=== PATIENT | male | born 1955 | race Caucasian/White ===

== ENCOUNTER 2017-05-25 13:29 | Observation (INO) | payer BC ==
[2017-05-22 11:57] VITALS: BMI 35.2
--- NOTE | 2017-05-25 12:23 | P.GSHP ---
History of Present Illness H&P Date: 05/25/17 Chief Complaint: Right angle hernia Patient seen in the office in mid April. The patient describes pain and swelling in the right groin over the last 4-5 months. Denies nausea vomiting. No change in bowel habits. Patient has a history of prior umbilical hernia that was repaired during a laparoscopic cholecystectomy. Past Medical History Past Medical History: Hypertension History of Any Multi-Drug Resistant Organisms: None Reported Past Surgical History: Cholecystectomy, Orthopedic Surgery Additional Past Surgical History / Comment(s): rt leg has screws Past Anesthesia/Blood Transfusion Reactions: No Reported Reaction Smoking Status: Never smoker - Past Family History Father Family Medical History: Cancer Additional Family Medical History / Comment(s): bone Medications and Allergies Home Medications Medication Instructions Recorded Confirmed Type Aspirin [Adult Low Dose Aspirin EC] 81 mg PO DAILY 05/22/17 05/22/17 History Lisinopril-Hctz 10-12.5 mg 1 tab PO DAILY 05/22/17 05/22/17 History [Zestoretic 10-12.5] Meloxicam [Mobic] 15 mg PO DAILY 05/22/17 05/22/17 History amLODIPine [Norvasc] 10 mg PO QAM 05/22/17 05/22/17 History Allergies Allergy/AdvReac Type Severity Reaction Status Date / Time No Known Allergies Allergy Verified 05/22/17 11:49 Surgical - Exam Physical exam: General: Well-developed, well-nourished HEENT: Normocephalic, sclerae nonicteric Abdomen: Nontender, nondistended, moderate size reducible right inguinal hernia , questionable small reducible left or hernia both testes normal Extremities: No edema Neuro: Alert and oriented Assessment and Plan (1) Right inguinal hernia Narrative/Plan: Will proceed with operative repair. Endoscopically with the da Willian assistance today. Risks of bleeding, infection, seroma, recurrence, chronic pain, lateral or bowel injury, mesh related comp occasions were discussed. Risk of conversion was also discussed. He understands and wishes to proceed. Status: Acute
[~2017-05-25 13:29] MED LIST: DEXAMETHASONE SOD PHOSPHATE 10 MG/ML 1 ML VIAL IV ONE; HEPARIN SODIUM,PORCINE 5,000 UNIT/ML 1 ML VIAL SQ ONE; LIDOCAINE 1% 20 ML VIAL (10MG/ML) FOR IV START INTRADERMA PRN; ONDANSETRON 4 MG/2 ML VIAL IVP ONE; SCOPOLAMINE 1.5MG/72HR PATCH TRANSDERM ONE; ceFAZolin 2 GM in SODIUM CHLORIDE 0.9% 100 ML IVPB ONE
[2017-05-25 13:47] VITALS: RESP 16
[2017-05-25] MEDS: LACTATED RINGERS 1,000 ML IV SCH ×2 (13:55→14:02)
[2017-05-25] MEDS ORDERED: MIDAZOLAM 2 MG/2 ML VIAL ONE (16:03)
[2017-05-25] MEDS ORDERED: PROPOFOL 10 MG/ML 20 ML VIAL IV ONE (16:03)
[2017-05-25] MEDS ORDERED: fentaNYL (PF) 50 MCG/ML 2 ML AMP ONE (16:03)
[2017-05-25] MEDS ORDERED: LIDOCAINE 1% INJ 10MG/ML (20 ML MDV) ONE (16:03)
[2017-05-25] MEDS ORDERED: SUCCINYLCHOLINE CHLORIDE 100 MG/5 ML SYR IV ONE (16:03)
[2017-05-25] MEDS ORDERED: ROCURONIUM BROMIDE 10 MG/ML 10 ML VIAL IV ONE (16:03)
[2017-05-25] MEDS ORDERED: GLYCOPYRROLATE 0.2 MG/ML 2 ML VIAL ONE (16:03)
[2017-05-25] MEDS ORDERED: NEOSTIGMINE 1 MG/ML 10 ML VIAL ONE (16:03)
[2017-05-25] MEDS ORDERED: BUPIVACAIN-EPI 0.25%-1:200,000 30 ML VIAL SQ ONE ×2 (16:29)
[2017-05-25] MEDS ORDERED: LACTATED RINGERS 1,000 ML IV ONE ×2 (17:23)
[2017-05-25] MEDS ORDERED: TAMSULOSIN 0.4 MG CAP.ER.24H PO STA (20:29)
[2017-05-25] MEDS: HYDROmorphone 1 MG/ML 1 ML SYRINGE IVP PRN ×2 (20:55→21:04)
[2017-05-25] MEDS ORDERED: NALOXONE 0.4 MG/ML 1 ML VIAL IV PRN (21:19)
[2017-05-25] MEDS ORDERED: ONDANSETRON 4 MG/2 ML VIAL IVP PRN (21:19)
[2017-05-25] MEDS ORDERED: HYDROcodone/APAP 5-325MG 1 EACH TAB PO PRN (21:19)
--- NOTE | 2017-05-25 21:25 | P.PCN ---
Date of Procedure: 05/25/17 Preoperative Diagnosis: Postoperative Diagnosis: Procedure(s) Performed: PREOPERATIVE DIAGNOSIS: Right inguinal hernia POSTOPERATIVE DIAGNOSIS: Bilateral inguinal hernia PROCEDURE: Laparoscopic repair lateral inguinal hernia with the da Willian robot assistance SURGEON: Tracee EBL: Minimal ANESTHESIA: General COMPLICATIONS: None OPERATIVE PROCEDURE: Patient was placed in the operating table in the supine position. The patient was then placed in lithotomy. The abdomen was prepped and draped in usual sterile fashion. A small curvilinear supraumbilical incision was made. The fascia was retracted anteriorly with [place] forceps. The Veress needle was inserted. The saline drop test was normal. Insufflation took place to 15 mmHg. A 5 mm trocar was then inserted. 2 additional 8 mm trochars were placed in the right upper quadrant and left upper quadrant under visualization. The initial 5 was switched to a 12 mm trocar at that time under direct visualization. The robotic arms were then brought in and docked into place. The fenestrated bipolar was used in the left arm and the laparoscopic alex was utilized in the right arm. A 30 12 mm scope was used in the up position. The peritoneal cavity was inspected. The patient was noted to have bilateral hernias with a very large indirect on the right and a small indirect on the left. An additional 5 mm trocar was placed in the right upper quadrant to assist with retraction of the large hernia sac on the right-hand side. The patient's cecum was visualized within the hernia and a portion of the hernia sac was composed of the peritoneum around the cecum. Following that careful dissection of the preperitoneal space took place bilaterally. This took place using both electrocautery and sharp dissection and primarily blunt dissection. Visualization of the pubic tubercle and Cesar's ligament took place medially. Full dissection took place laterally as well. The hernia sac was fully dissected. No direct hernia was identified bilaterally. Once we had adequate space the 15 x 10 progrip mesh was advanced into the preperitoneal space and flattened out appropriately to cover all potential hernia sites bilaterally. No sutures were used. The peritoneal defect was then closed using a locking 2- 0 VLok suture. An additional small 3-0 Vicryl stitch was used on the left peritoneum to assist with closure of 2 small defects in the peritoneum. On the right-hand side where the large hernia sac was identified there were also small defects but these were closed using the 12 inch 2-0 vlock stitch. The pneumoperitoneum was then evacuated. The fascia at the 12 mm site was closed using the Neri Santillan technique and a 0 Vicryl stitch. The skin of all 3 sites was closed using a 4-0 Monocryl stitch. Steri-Strips and sterile dressings were applied. DISPOSITION: Stable to recovery room Implants: Indications for Procedure: Operative Findings: Description of Procedure:
[2017-05-25] MEDS: D5-0.45% NACL WITH KCL 20MEQ/L 1,000 ML IV SCH (22:07)
[2017-05-25] MEDS: HEPARIN SODIUM,PORCINE 5,000 UNIT/ML 1 ML VIAL SQ SCH (23:17)
[2017-05-26 01:55] VITALS: PULSE 60
[2017-05-26] MEDS: D5-0.45% NACL WITH KCL 20MEQ/L 1,000 ML IV SCH (05:25)
[2017-05-26 08:28] VITALS: BP 124/62; TEMP 97.1
[2017-05-26] MEDS: HEPARIN SODIUM,PORCINE 5,000 UNIT/ML 1 ML VIAL SQ SCH (08:30)
[2017-05-26] MEDS ORDERED: MELOXICAM 7.5 MG TAB PO SCH (09:00)
[2017-05-26] MEDS ORDERED: ASPIRIN 81 MG PO SCH (09:00)
[2017-05-26] MEDS ORDERED: amLODIPine 10 MG TAB PO SCH (09:00)
[2017-05-26] MEDS ORDERED: LISINOPRIL-HCTZ 10-12.5 MG 1 EACH TAB PO SCH (09:00)
--- NOTE | 2017-06-26 12:14 | P.DS ---
Providers Date of admission: 05/25/17 21:02 Expected date of discharge: 06/26/17 Attending physician: Jamal Easley Primary care physician: Hank San - Discharge Diagnosis(es) (1) Right inguinal hernia Patient was admitted for elective hernia repair. He underwent repair of bilateral inguinal hernia laparoscopically with da Willian assistance. Postoperatively the patient did well and was discharged home in stable condition. Status: Acute Plan - Discharge Summary New Discharge Prescriptions: No Action Meloxicam [Mobic] 15 mg PO DAILY Lisinopril-Hctz 10-12.5 mg [Zestoretic 10-12.5] 1 tab PO DAILY amLODIPine [Norvasc] 10 mg PO QAM Aspirin [Adult Low Dose Aspirin EC] 81 mg PO DAILY Discharge Medication List Aspirin [Adult Low Dose Aspirin EC] 81 mg PO DAILY 05/22/17 [History] Lisinopril-Hctz 10-12.5 mg [Zestoretic 10-12.5] 1 tab PO DAILY 05/22/17 [History ] Meloxicam [Mobic] 15 mg PO DAILY 05/22/17 [History] amLODIPine [Norvasc] 10 mg PO QAM 05/22/17 [History] Follow up Appointment(s)/Referral(s): Jamal Easley MD [Medical Doctor] - 05/31/17 9:10 am Patient Instructions/Handouts: Inguinal Hernia Repair (DC) Discharge Disposition: HOME SELF-CARE
== END 2017-05-26 10:07 | disposition home or self-care (01) ==
LOC: OR 13:29 → 3SUR 21:01 → OR 21:02 → UNDOADMOB 21:02 → 3SUR 21:02
PROVIDERS: ADMIT Surgery; ATTEND Surgery
DX: K40.20 Bilateral inguinal hernia, without obstruction or gangrene, not specified as recurrent (principal); R10.9 Unspecified abdominal pain; I10 Essential (primary) hypertension; K42.9 Umbilical hernia without obstruction or gangrene; Z90.49 Acquired absence of other specified parts of digestive tract; Z79.82 Long term (current) use of aspirin; Z79.1 Long term (current) use of non-steroidal anti-inflammatories (NSAID); Z79.899 Other long term (current) drug therapy
CPT/HCPCS: 49650; S2900

== ENCOUNTER → 2018-06-04 | Outpatient (CLI) | payer BC ==
--- NOTE | 2018-06-04 22:45 | MR ---
EXAMINATION TYPE: MR knee LT wo con DATE OF EXAM: 06/04/2018 COMPARISON: Outside left knee x-ray March 05, 2018 HISTORY: Lt knee pain/medial x 4 mos, no trauma TECHNIQUE: Multiplanar, multisequence images of the knee is performed without IV contrast. FINDINGS: MEDIAL MENISCUS: Anterior horn is intact without tear. There is oblique increased signal posterior ho rn extends to inferior articular surface consistent with full-thickness meniscal tear, full-thickness loss in central body is present with large cleft. LATERAL MENISCUS: Anterior and posterior horns are intact without tear. CRUCIATE LIGAMENTS: The anterior and posterior cruciate ligaments are intact and unremarkable. COLLATERAL LIGAMENTS: The medial collateral ligament and lateral collateral ligament complex are inta ct. Mild increased fluid signal surrounds medial collateral ligament EXTENSOR MECHANISM: Visualized quadriceps and patellar tendons are intact. EFFUSION: There is moderate to large size suprapatellar joint effusion. POPLITEAL CYST: No popliteal/trejo cyst. TRICOMPARTMENT SPACES: Moderate joint space loss patellofemoral compartment is seen. There is moderat e narrowing of medial tibiofemoral compartment. Mild to minimal tricompartment spurring is present. CARTILAGE: There is chondromalacia patella with cartilaginous loss along the posterior patellar pole, full-thickness defects midpole level are present. There is fissuring and increased signal articular cartilage medial tibiofemoral compartment. BONE MARROW SIGNAL: Marked heterogeneous osseous contusion involving the distal medial femoral condyl e is present with heterogeneous increased T2 signal. There is adjacent area of diminished T1 and incr eased T2 signal involving the medial aspect medial tibial plateau OTHER: No additional significant abnormality is appreciated. IMPRESSION: 1. Fairly advanced osteoarthritic changes medial tibiofemoral compartment with significant joint spac e loss and prominent osseous contusion or bone marrow edema or diffusely over the distal medial femor al condyle and more focally over medial aspect medial tibial plateau. 2. There is complex tear central body medial meniscus with oblique full-thickness tear extending into the posterior horn. 3. Moderate to large-sized suprapatellar joint effusion. 4. Moderate patellofemoral osteoarthropathy with full thickness chondromalacia patella. 5. Mild to moderate MCL sprain injury.
== END | disposition home or self-care (01) ==
LOC: RADMRIMAIN 17:34
PROVIDERS: ATTEND Orthopaedic Surgery
DX: S83.242A Other tear of medial meniscus, current injury, left knee, initial encounter (principal); S83.412A Sprain of medial collateral ligament of left knee, initial encounter; M17.12 Unilateral primary osteoarthritis, left knee; M22.42 Chondromalacia patellae, left knee

== ENCOUNTER 2018-06-29 08:31 | Day surgery (SDC) | payer BC ==
[2018-06-25 15:54] VITALS: BMI 34.5
--- NOTE | 2018-06-28 10:25 | HP ---
HISTORY AND PHYSICAL CHIEF COMPLAINT: Left knee pain. 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 He notes intermittent giving way along with medial pain and swelling. He has tried medications and an injection with only partial temporary relief. PAST MEDICAL HISTORY: Significant for hypertension. PAST SURGICAL HISTORY: Significant for cholecystectomy in addition to hernia repair. CURRENT MEDICATIONS: 1. Amlodipine. 2. Hydrochlorothiazide. 3. Mobic. ALLERGIES: He denies drug allergies. FAMILY HISTORY: Family history is negative. SOCIAL HISTORY: Negative for current tobacco or alcohol use. REVIEW OF SYSTEMS: Sixteen point review of systems otherwise reviewed and is noncontributory. PHYSICAL EXAMINATION: On examination, the patient is approximately 6 feet tall, 260 pounds of endomorphic habitus. HEENT exam is nonfocal. Neck is supple. He has painless passive motion of his left hip. Straight leg raise is negative. Active motion left knee -12 to 115 degrees of flexion. He has a large effusion. He is tender about the medial joint line. Collaterals are stable, Raheem's negative, and Seun's elicits medial pain. His distal neurovascular exam appears to be intact in the left lower extremity. MRI report left knee 06/04/2018 shows a posterior medial meniscal tear in addition to medial compartment osteoarthrosis. IMPRESSION: 1. Left knee internal derangement with symptomatic medial meniscal tear. 2. Left knee moderate medial and patellofemoral compartment osteoarthrosis. 3. Increased body mass index. 4. Hypertension. RECOMMENDATIONS: I talked to the patient at length regarding his condition and treatment options. At this point, he has persistent pain and mechanical symptoms despite adequate conservative measures. After thorough discussion, he opts to proceed with surgery. We will plan to proceed with arthroscopic evaluation with possible partial medial meniscectomy. Risks and benefits were discussed at length in layman's terms. We will likely perform that as an outpatient procedure. The patient underwent preoperative cardiac evaluation. MMODL / IJN: [id number] /
[~2018-06-29 08:31] MED LIST changes: -HEPARIN SODIUM,PORCINE 5,000 UNIT/ML 1 ML VIAL SQ ONE; +MIDAZOLAM 2 MG/2 ML VIAL IV PRN; -SCOPOLAMINE 1.5MG/72HR PATCH TRANSDERM ONE; -ceFAZolin 2 GM in SODIUM CHLORIDE 0.9% 100 ML IVPB ONE; +ceFAZolin IN SWFI 2 GM/20 ML SYRINGE IVP ONE; +fentaNYL (PF) 50 MCG/ML 2 ML AMP IV PRN
[2018-06-29] MEDS: LACTATED RINGERS 1,000 ML IV SCH ×2 (08:56→09:29)
[2018-06-29] MEDS ORDERED: fentaNYL (PF) 50 MCG/ML 2 ML AMP ONE (09:31)
[2018-06-29] MEDS ORDERED: LIDOCAINE 1% INJ 10MG/ML (20 ML MDV) ONE (09:31)
[2018-06-29] MEDS ORDERED: PROPOFOL 10 MG/ML 20 ML VIAL IV ONE (09:31)
[2018-06-29] MEDS ORDERED: KETOROLAC 30 MG/ML 1 ML VIAL ONE (09:31)
[2018-06-29] MEDS ORDERED: MIDAZOLAM 2 MG/2 ML VIAL ONE (09:31)
[2018-06-29] MEDS ORDERED: SUCCINYLCHOLINE CHLORIDE 100 MG/5 ML SYR IV ONE (09:31)
[2018-06-29] MEDS ORDERED: EPINEPHrine (PF) 1 ML in SODIUM CHLORIDE 0.9% IRRIGATIO 3,000 ML IRRIGATION ONE ×4 (09:50)
--- NOTE | 2018-06-29 10:22 | P.OP ---
Date of Procedure: 06/29/18 Preoperative Diagnosis: Left knee internal derangement Postoperative Diagnosis: Left knee posterior medial meniscal tear/grade 3 chondral injury distal medial portion medial femoral condyle/reactive synovitis of the medial, lateral, and patellofemoral compartments Procedure(s) Performed: Left knee arthroscopic partial medial meniscectomy/medial femoral chondrectomy/ partial synovectomy of the medial, lateral, and patellofemoral compartments Anesthesia: GETA Surgeon: Lasha Koch Estimated Blood Loss (ml): 10 Pathology: none sent Condition: stable Disposition: PACU Indications for Procedure: The patient's a 62-year-old male who presents with progressive left knee pain and mechanical symptoms despite conservative measures. A discussion of the risks and benefits of operative intervention was continued conservative measures was made with patient. He opted to proceed with surgery. Operative risks to include infection, neurovascular injury, development of blood clots, possible incomplete resolution of symptoms, possible worsening symptoms and need for subsequent procedures was discussed. Informed consent was obtained. Operative Findings: As below Description of Procedure: The patient was brought to the operating room, and after induction of general anesthesia examined the left knee. Collaterals were stable, Raheem was negative, and posterior drawer was negative. The left lower extremity was prepped and draped in normal fashion. A superior lateral portal was made through a 3 mm skin incision superior and lateral to the patella. This was used for outflow. A large effusion was encountered. A lateral portal was made through a 5 mm vertical skin incision lateral to the patella tendon above the joint. Diagnostic arthroscopy was performed. A medial portal was made through a similar incision medial to the patella tendon above the joint line. On inspection of the medial compartment, there was a complex tear involving the posterior horn medial meniscus in the whitered junction. This was not amenable to repair. This was debrided back to stable base with straight baskets and a motorized shaver. The edges were contoured. A corresponding grade 3 chondral injury involving the distal medial portion medial femoral condyle was noted. There was a loose chondral flap debrided back to stable base with a motorized shaver. Reactive synovitis involving the anterior medial and lateral compartments was debrided with a motorized shaver. On inspection of the notch, the anterior cruciate ligament appeared to be intact. On inspection lateral compartment, the medial meniscus and articular cartilage was intact. On inspection the patellofemoral articulation, there was marked synovitis debrided with motorized shaver. Chondral fibrillation and degenerative changes were noted, however there was no loose chondral fragments. The gutters were clear of debris. The knee was then thoroughly irrigated. The portals were closed with Steri-Strips. A sterile dressing was applied in addition to a compression stocking. The patient was awoken from general anesthesia and transferred to recovery room in good condition. Blood loss was estimated at 10 mL. No complications were incurred.
[2018-06-29 10:31] VITALS: RESP 16; TEMP 98
[2018-06-29] MEDS ORDERED: LACTATED RINGERS 1,000 ML IV ONE (11:05)
[2018-06-29 11:56] VITALS: BP 160/69; PULSE 53
== END 2018-06-29 12:11 | disposition home or self-care (01) ==
LOC: OR 08:31
PROVIDERS: ATTEND Orthopaedic Surgery
DX: S83.242A Other tear of medial meniscus, current injury, left knee, initial encounter (principal); X58.XXXA Exposure to other specified factors, initial encounter; S83.32XA Tear of articular cartilage of left knee, current, initial encounter; M65.862 Other synovitis and tenosynovitis, left lower leg; I10 Essential (primary) hypertension; Z79.899 Other long term (current) drug therapy; Z79.82 Long term (current) use of aspirin
CPT/HCPCS: 29881; J2250; J1100; J2405; J0171; J2001; J3010; J1885; J0330; J2704; J0690

== ENCOUNTER → 2019-01-03 | Outpatient (CLI) | payer OTHER ==
--- NOTE | 2019-01-04 03:21 | MR ---
EXAMINATION TYPE: MR knee RT wo con DATE OF EXAM: 01/03/2019 COMPARISON: Outside radiographs 12/31/2018 HISTORY: 63-year-old male Pain in right knee TECHNIQUE: Multiplanar, multisequence imaging of the right knee is performed without IV contrast. FINDINGS: Extensive metal hardware artifact relating to the patient's tibial plateau screw fixations. Artifacts are exacerbated on the 3 Alexia magnet. ACL is not well seen and could be severely degenerated for torn. PCL is thickened to 9 mm suggesting underlying tear or expansion from mucoid degeneration. Loose bodies are seen along the popliteus tendon sheath. There is thickening and intermediate signal of the popliteus tendon compatible with tendinosis. To the extent visualized, LCL complex appears int act. Possible sequela of prior MCL injury at the femoral attachment given to possible edematous ossicle, a xial T2 image 14. Some thinned but intact fibers of the MCL are seen. The junction of the posterior horn and body of the medial meniscus is not optimally visualized and fo kenneth tear here is difficult to exclude, sagittal STIR image 5. The anterior horn and most of the body of the lateral meniscus is obscured and not evaluated. Unable to exclude degenerative tear at the junction of the posterior horn and body, refer to sagittal T1 artur ge 25. Advanced degenerative change in the medial compartment with irregular full-thickness to nearly full-t hickness cartilage loss and marginal spurring. Similar degenerative changes in the lateral compartment though not as well visualized due to metal nguyen rdware artifact. Severe degenerative change in the patellofemoral compartment with areas of full-thickness cartilage l oss and bulky marginal spurring. Slight lateral patellar translation. Mild generalized muscular atrophy. Extensor mechanism is intact. There is a moderate joint effusion without sizable Nolen cyst. Normal pulmonary artery anatomy and muscle bulk. No suspicious bone marrow replacement. IMPRESSION: 1. Marked exam limitations due to metal hardware artifact from the patient's tibial plateau screw fix ation. Artifacts are exacerbated by the 3T magnet. 2. Advanced tricompartmental osteoarthrosis. Large portions of the menisci are obscured but underlyin g tears of at least the junctions at the posterior horn and bodies are suspected. 3. ACL not well seen and could be severely degenerative or torn. 4. PCL is thickened at 9 mm. This could reflect underlying tear or expansion from mucoid degeneration .
== END | disposition home or self-care (01) ==
LOC: RADMRIMAIN 07:40
PROVIDERS: ATTEND Orthopaedic Surgery
DX: M17.11 Unilateral primary osteoarthritis, right knee (principal); M79.89 Other specified soft tissue disorders

== ENCOUNTER → 2020-03-15 | Outpatient (CLI) | payer MEDICARE, OTHER | END | disposition home or self-care (01) | LOC: LABWHC1 07:12 | PROVIDERS: ATTEND Surgery | DX: U07.1 COVID-19 (principal) | CPT/HCPCS: 87635 ==

== ENCOUNTER 2020-03-17 06:15 | Day surgery (SDC) | payer MEDICARE, OTHER ==
[2020-03-16 12:06] VITALS: BMI 33.9
[~2020-03-17 06:15] MED LIST changes: +HEPARIN SODIUM,PORCINE 5,000 UNIT/ML 1 ML VIAL SQ ONE; +HYDROmorphone 0.5 MG/0.5 ML SYRINGE IVP PRN; +LACTATED RINGERS 1,000 ML IV SCH; +LIDOCAINE 1% (10MG/ML) FOR IV START INTRADERMA PRN; -LIDOCAINE 1% 20 ML VIAL (10MG/ML) FOR IV START INTRADERMA PRN; -MIDAZOLAM 2 MG/2 ML VIAL IV PRN; +SCOPOLAMINE 1.5MG/72HR PATCH TRANSDERM ONE; -ceFAZolin IN SWFI 2 GM/20 ML SYRINGE IVP ONE; -fentaNYL (PF) 50 MCG/ML 2 ML AMP IV PRN
[2020-03-17 06:32] VITALS: RESP 16
[2020-03-17] MEDS ORDERED: fentaNYL (PF) 50 MCG/ML 2 ML AMP ONE (07:39)
[2020-03-17] MEDS ORDERED: MIDAZOLAM 2 MG/2 ML VIAL ONE (07:39)
[2020-03-17] MEDS ORDERED: PROPOFOL 10 MG/ML 20 ML VIAL IV ONE (07:39)
[2020-03-17] MEDS ORDERED: KETOROLAC 30 MG/ML 1 ML VIAL ONE (07:39)
[2020-03-17] MEDS ORDERED: ROCURONIUM BROMIDE 10 MG/ML 5 ML VIAL IV ONE (07:39)
[2020-03-17] MEDS ORDERED: GLYCOPYRROLATE 0.2 MG/ML 2 ML VIAL ONE (07:39)
[2020-03-17] MEDS ORDERED: SUCCINYLCHOLINE CHLORIDE VIAL 200 MG/10 ML VIAL IV ONE (07:39)
[2020-03-17] MEDS ORDERED: LIDOCAINE 1% INJ 10MG/ML (20 ML MDV) ONE (07:39)
[2020-03-17] MEDS ORDERED: NEOSTIGMINE 1 MG/ML 10 ML VIAL ONE (07:39)
--- NOTE | 2020-03-17 07:39 | P.GSHP ---
History of Present Illness H&P Date: 03/17/20 Chief Complaint: Recurrent right inguinal hernia 64-year-old male known to our service. Recently diagnosed with a recurrent right inguinal hernia. Previously had a bilateral laparoscopic repair 2016. Hernia on the right-hand side was large and direct in nature. He was shoveling recently and developed a pain with swelling. Surgery postponed because of the stuart virus pandemic. Past Medical History Past Medical History: Asthma, Hypertension, Osteoarthritis (OA) Additional Past Medical History / Comment(s): "abnormal heart beat"-no tx. for per pt., asthma as child, hx hiatal hernia History of Any Multi-Drug Resistant Organisms: None Reported Past Surgical History: Cholecystectomy, Hernia Repair, Orthopedic Surgery Additional Past Surgical History / Comment(s): rt knee surgery (fx)- screws, arthroscopy left knee Past Anesthesia/Blood Transfusion Reactions: No Reported Reaction Smoking Status: Never smoker - Past Family History Father Family Medical History: Cancer Additional Family Medical History / Comment(s): bone Medications and Allergies Home Medications Medication Instructions Recorded Confirmed Type Lisinopril-Hctz 10-12.5 mg 1 tab PO DAILY 05/22/17 03/17/20 History [Zestoretic 10-12.5] amLODIPine [Norvasc] 10 mg PO QAM 05/22/17 03/17/20 History Allergies Allergy/AdvReac Type Severity Reaction Status Date / Time No Known Allergies Allergy Verified 03/16/20 12:03 Surgical - Exam Vital Signs Temp Pulse Resp BP Pulse Ox 97.3 F L 53 L 16 170/77 96 03/17/20 06:30 03/17/20 06:30 03/17/20 06:30 03/17/20 06:30 03/17/20 06:30 Physical exam: General: Well-developed, well-nourished HEENT: Normocephalic, sclerae nonicteric Abdomen: Nontender, nondistended, reducible right inguinal hernia Extremities: No edema Neuro: Alert and oriented Assessment and Plan (1) Recurrent right inguinal hernia Narrative/Plan: Options reviewed in detail with the patient. We'll proceed with open repair recurrent right inguinal hernia with mesh. Risks of bleeding, infection, rec urrence, bladder and bowel injury, numbness, nerve injury were discussed with the patient. The patient understands and wishes to proceed. Current Visit: Yes Status: Acute Code(s): K40.91 - UNILATERAL INGUINAL HERNIA, W/O OBST OR GANGRENE, RECURRENT SNOMED Code(s): 648432624
[2020-03-17] MEDS ORDERED: BUPIVACAIN-EPI 0.25%-1:200,000 30 ML VIAL SQ ONE (07:45)
[2020-03-17] MEDS ORDERED: LACTATED RINGERS 1,000 ML IV ONE (09:26)
--- NOTE | 2020-03-17 09:41 | P.OP ---
Date of Procedure: 03/17/20 Procedure(s) Performed: PREOPERATIVE DIAGNOSIS: Recurrent right inguinal hernia POSTOPERATIVE DIAGNOSIS: Recurrent right indirect inguinal hernia PROCEDURE: Recurrent right inguinal hernia repair with mesh SURGEON: Tracee EBL: 20 mL ANESTHESIA: General COMPLICATIONS: None OPERATIVE PROCEDURE: Patient was placed in the operating table in the supine position and placed under general anesthesia. An oblique incision was made in the right groin. Dissection down through the subcutaneous tissues took place u sing electrocautery. The external oblique fascia was incised using a scalpel. This opening was lengthened using the Metzenbaum scissors. The spermatic cord was encircled with a [place] drain. The structures were identified and preserved. The cord itself was quite thick. There were 2 large lipomas that were excised and ligated using 0 silk ties. Careful dissection revealed an very large indirect hernia sac. This was carefully dissected back to the internal inguinal ring. The hernia sac was opened. It contained cecum and appendix. There were some adhesions to the hernia sac which were lysed using sharp dissection. The bowel was reduced back into the perineal cavity. At that time I was able to ligate the cord using 3 separate #2 Ethib[place] stick tie sutures. No recurrent direct hernia was identified. I could identify some scar tissue medially from the presumed laparoscopic mesh. A 3" x 6" Prolene mesh was cut to fit on the exposed fascia. This was sutured to the pubic tubercle the folding edge of the inguinal ligament and the conjoined tendon. A slit was created in the mesh and the mesh was wrapped around the spermatic cord and sutured back to itself. The external oblique was then reapproximated using a running 2-0 Vicryl suture. The subcutaneous tissues were reapproximated using a 3-0 Vicryl sutures. The skin was closed using 4-0 Monocryl sutures. Skin glue and sterile dressings were then applied. DISPOSITION: Stable to recovery room
[2020-03-17 09:45] VITALS: TEMP 97.6
[2020-03-17] MEDS ORDERED: HYDROcodone/APAP 5-325MG 1 EACH TAB PO PRN (10:10)
[2020-03-17] MEDS ORDERED: NALOXONE 0.4 MG/ML 1 ML VIAL IV PRN (10:10)
[2020-03-17 11:10] VITALS: BP 148/76; PULSE 55
== END 2020-03-17 11:31 | disposition home or self-care (01) ==
LOC: OR 06:15
PROVIDERS: ATTEND Surgery
DX: K40.91 Unilateral inguinal hernia, without obstruction or gangrene, recurrent (principal); I10 Essential (primary) hypertension; M19.90 Unspecified osteoarthritis, unspecified site; Z90.49 Acquired absence of other specified parts of digestive tract; R00.9 Unspecified abnormalities of heart beat; Z80.8 Family history of malignant neoplasm of other organs or systems; Z79.899 Other long term (current) drug therapy; Z79.82 Long term (current) use of aspirin; Z98.890 Other specified postprocedural states; D17.6 Benign lipomatous neoplasm of spermatic cord
CPT/HCPCS: 49520; C1781; J2250; J0330; J1644; J1100; J2710; J0690; J2405; J2001; J3010; J1885; J2704; J1170; 88302

== ENCOUNTER → 2021-05-13 | Outpatient (CLI) | payer MEDICARE, OTHER ==
--- NOTE | 2021-05-13 17:17 | US ---
EXAMINATION TYPE: US renal artery duplex complet DATE OF EXAM: 05/13/2021 COMPARISON: NONE CLINICAL HISTORY: Q27.1 renal artery stenosis. HTN for 3 years MEASUREMENTS: RENAL SIZE: Rt Kidney: 11.6 x 6.0 x 5.2cm Lt Kidney: 12.1 x 6.0 x 4.7cm RESISTANCE INDEX Right: 0.65 Left: 0.64 RA/AO RATIO (< 3.5 ) Right: 1.3 within normal limits Left: 1.7 within normal limits RA VELOCITY ( < 180 cm/s) Right: 169.0cm/s Left: 216.2cm/s this is elevated. Technical limitations due to patient's body habitus and large amount of overlying bowel content. Aort ic bifurcation obscured, visualized portions of aorta and kidneys appear wnl. limited evaluation of r enal arteries, no evidence of stenosis right renal artery, mildly elevated velocities left proximal r enal artery. IMPRESSION: There are technical limitations of the study due to patient's large body habitus and overlying bowel gas. Limited visualization of the renal arteries. No definite evidence of right renal artery stenosis . Elevated velocities of the left proximal renal artery. A CT angiogram of the kidneys could be obtai juan luis if clinically indicated.
== END | disposition home or self-care (01) ==
LOC: RADUSWWP 08:38
PROVIDERS: ATTEND Internal Medicine Interventional Cardiology
DX: I70.1 Atherosclerosis of renal artery (principal); I10 Essential (primary) hypertension; Q27.1 Congenital renal artery stenosis
CPT/HCPCS: 93975

== ENCOUNTER → 2021-06-25 | Outpatient (CLI) | payer MEDICARE, OTHER ==
--- NOTE | 2021-06-25 10:26 | CT ---
EXAMINATION TYPE: CT angio abdomen pelvis DATE OF EXAM: 06/25/2021 COMPARISON: Correlation duplex renal ultrasound 05/13/2021 HISTORY: 65-year-old male I70.1, elevated left renal artery velocities, assess for Renal artery steno sis TECHNIQUE: Contiguous axial scanning of the abdomen and pelvis before and after administration of 80 ml Isovue 370 IV contrast. Coronal/sagittal MIP reconstructions performed. 3-D reconstructions gener ated by a dedicated workstation. CT DLP: 2103.3 mGycm Automated exposure control for dose reduction was used. FINDINGS: Heart normal size without pericardial effusion. Lung bases clear without pleural effusion. Liver enlarged measuring 20.0 cm. No significant fatty infiltration on the noncontrast images. Cholec ystectomy clips. No biliary ductal dilatation. Adrenal glands, spleen, and pancreas within normal limits. There is a 3.7 cm diverticulum of the thir d portion of the duodenum projecting superiorly into the pancreatic head region. No dilated small bowel, free fluid, or free air. No renal calculi. Mild perinephric edema probably senescent change. Symmetric uptake of contrast in b oth kidneys. No hydronephrosis. Brambila right renal artery. Duplex left renal artery. No significant stenosis seen on either side. There are ectatic bilateral common iliac arteries measuring up to 1.8 cm. A few scattered nonenlarged and borderline sized mesenteric lymph nodes in the left side of the abdom en measure up to 7 mm, probably reactive/post inflammatory, refer to coronal image 44 and 21. No significant stool burden. Generalized colonic diverticulosis. No pericolic inflammatory change. There is anterior pelvic wall mesh repair noted. Bladder urine distended. Prostate gland measures 5.5 cm wide with central calcifications. No abnormal fluid collection in the pelvis or pelvic lymph demi opathy. Bones: Mild degenerative spurring at the hips and left SI joint. Facet arthropathy lower lumbar spine . Some anterior plate spondylosis lower thoracic spine. IMPRESSION: 1. BRAMBILA RIGHT RENAL ARTERY. DUPLEX LEFT RENAL ARTERIES. NORMAL PATENCY IS MAINTAINED. NO SIGNIFI CANT STENOSIS. 2. INCIDENTAL: HEPATOMEGALY (20.0 CM), STATUS POST CHOLECYSTECTOMY, ECTATIC BILATERAL COMMON ILIAC AR TERIES AT 1.8 CM, GENERALIZED COLONIC DIVERTICULOSIS. PROSTATOMEGALY AT 5.5 CM WIDE; CORRELATE WITH P ATIENT'S SYMPTOMS AND WITH PSA.
== END | disposition home or self-care (01) ==
LOC: RADCTMAIN 08:02
PROVIDERS: ATTEND Internal Medicine Cardiovascular Disease
DX: I70.1 Atherosclerosis of renal artery (principal); R16.0 Hepatomegaly, not elsewhere classified; K57.30 Diverticulosis of large intestine without perforation or abscess without bleeding
CPT/HCPCS: 82565; 84520; 36415; 74174; Q9967

== ENCOUNTER → 2025-03-17 | Outpatient (CLI) | payer MEDICARE ==
--- NOTE | 2025-03-17 16:46 | US ---
EXAMINATION TYPE: US venous doppler duplex LE RT DATE OF EXAM: 03/17/2025 4:38 PM COMPARISON: NONE CLINICAL INDICATION: Male, 69 years old with history of M79.661 PAIN IN RIGHT LOWER LEG; Injury about 1 week ago, swelling, bruising, and pain, Pain TECHNIQUE: The lower extremity deep venous system is examined utilizing real time linear array sonog pradeep with graded compression, color doppler sonography, and spectral doppler. SIDE PERFORMED: Right FINDINGS: VESSELS IMAGED: Common Femoral Vein Deep Femoral Vein Greater Saphenous Vein * Femoral Vein Popliteal Vein Small Saphenous Vein * Proximal Calf Veins (* superficial vessels) Right Leg: Negative for DVT, Color Doppler imaging shows patency of the vessels. Spectral waveforms are within normal limits. IMPRESSION: No evidence of deep vein thrombosis of the right lower extremity. [facility], , 03/17/2025 4:44 PM
== END | disposition home or self-care (01) ==
LOC: RADUSWWP 16:25
PROVIDERS: ATTEND Family Medicine
DX: M79.661 Pain in right lower leg (principal)